=== PATIENT | male | born 1995 | race Caucasian/White ===

== ENCOUNTER 2020-04-22 09:41 | Emergency (ER) | payer OTHER ==
[~2020-04-22] VITALS: Wt 127.0 kg
[2020-04-22] MEDS ORDERED: PREDNISONE20 M1 PO (12:14)
[2020-04-22] MEDS ORDERED: PROVENTIL HFA6.7 GM INH (12:14)
== END 2020-04-22 12:34 | disposition home or self-care (01) ==
LOC: ED 09:41
DX: J00 Acute nasopharyngitis [common cold] (principal); Z20.828 Contact with and (suspected) exposure to other viral communicable diseases

== ENCOUNTER 2021-07-31 11:02 | Emergency (ER) | payer OTHER ==
[~2021-07-31] VITALS: Ht 180.3 cm; Wt 140.6 kg
[~2021-07-31 11:02] MED LIST: PREDNISONE20 M1 PO; PROVENTIL HFA6.7 GM INH
[2021-07-31] MEDS ORDERED: CYCLOBENZAPRINE10 MG PO (17:31)
[2021-07-31] MEDS ORDERED: Motrin,Rufen800 MG PO (17:31)
== END 2021-07-31 17:46 | disposition home or self-care (01) ==
LOC: ED 11:02
DX: S16.1XXA Strain of muscle, fascia and tendon at neck level, initial encounter (principal); V89.2XXA Person injured in unspecified motor-vehicle accident, traffic, initial encounter; Y93.89 Activity, other specified; Y92.89 Other specified places as the place of occurrence of the external cause; Y99.8 Other external cause status

== ENCOUNTER 2024-03-19 10:49 | Emergency (ER) | payer OTHER ==
[~2024-03-19] VITALS: Ht 182.8 cm
[~2024-03-19 10:49] MED LIST changes: +CYCLOBENZAPRINE10 MG PO; +Motrin,Rufen800 MG PO
[2024-03-19] MEDS ORDERED: methylPREDNISolone sod succ 125 MG VIAL IM ONE (11:15)
[2024-03-19] MEDS ORDERED: CLOBETASOL PROPIONATE 30 GM TUBE T ONE (11:15)
== END 2024-03-19 11:49 | disposition home or self-care (01) ==
LOC: ED 10:49
DX: T63.441A Toxic effect of venom of bees, accidental (unintentional), initial encounter (principal); Y92.89 Other specified places as the place of occurrence of the external cause

== ENCOUNTER 2024-12-28 11:27 | Emergency (ER) | payer BC ==
[~2024-12-28] VITALS: Ht 182.8 cm; Wt 130.2 kg
== END 2024-12-28 13:20 | disposition left against medical advice (07) ==
LOC: ED 11:27
DX: J02.9 Acute pharyngitis, unspecified (principal); Z53.21 Procedure and treatment not carried out due to patient leaving prior to being seen by health care provider

== ENCOUNTER 2025-02-23 11:37 | Emergency (ER) | payer BC ==
[~2025-02-23] VITALS: Ht 182.8 cm; Wt 127.0 kg
[2025-02-23] MEDS ORDERED: PENICILLIN VK500 MG PO (12:12)
== END 2025-02-23 12:31 | disposition home or self-care (01) ==
LOC: ED 11:37
DX: K02.9 Dental caries, unspecified (principal); Z79.899 Other long term (current) drug therapy

== ENCOUNTER 2025-04-07 14:45 | Emergency (ER) | payer BC ==
[~2025-04-07] VITALS: Ht 182.8 cm; Wt 124.7 kg
[~2025-04-07 14:45] MED LIST changes: +PENICILLIN VK500 MG PO
[2025-04-07] MEDS ORDERED: MEDROL DOSEPAK4 MG PO (16:28)
== END 2025-04-07 16:51 | disposition home or self-care (01) ==
LOC: ED 14:45
DX: J06.9 Acute upper respiratory infection, unspecified (principal); Z20.822 Contact with and (suspected) exposure to COVID-19

== ENCOUNTER 2025-06-13 05:22 | Emergency (ER) | payer BC ==
[~2025-06-13] VITALS: Ht 182.8 cm; Wt 127.0 kg
[~2025-06-13 05:22] MED LIST changes: +MEDROL DOSEPAK4 MG PO
[2025-06-13] MEDS ORDERED: CLINDAMYCIN HC300 MG PO (05:45)
[2025-06-13] MEDS ORDERED: KETOROLAC10 MG PO (05:46)
== END 2025-06-13 06:30 | disposition home or self-care (01) ==
LOC: ED 05:22
DX: K08.89 Other specified disorders of teeth and supporting structures (principal)